=== PATIENT | female | born 1995 ===

== ENCOUNTER 2021-11-17 22:55 | Emergency (ER) | payer SELFPAY | END 2021-11-17 23:07 | disposition left against medical advice (07) | LOC: EMS 22:58 | DX: O26.893 Other specified pregnancy related conditions, third trimester (principal); R52 Pain, unspecified; Z3A.37 37 weeks gestation of pregnancy; Z53.21 Procedure and treatment not carried out due to patient leaving prior to being seen by health care provider ==